=== PATIENT | female | born 1955 | race African-American/Black ===

== ENCOUNTER 2020-01-05 17:00 | Emergency (ER) | payer MEDICAID, OTHER ==
[~2020-01-05] VITALS: Ht 167.6 cm; Wt 52.0 kg
[~2020-01-05 17:00] MED LIST: DICLOFENAC; TRAM50TA PO
[2020-01-05 17:02] VITALS: BP 106/64
== END 2020-01-05 19:27 | disposition left against medical advice (07) ==
LOC: ER 17:00
DX: Z53.21 Procedure and treatment not carried out due to patient leaving prior to being seen by health care provider (principal)